=== PATIENT | male | born 1975 ===

== ENCOUNTER 2022-03-05 06:00 | Outpatient (RCR) | payer OTHER, SELFPAY | END 2022-03-24 23:59 | disposition home or self-care (01) | LOC: MPT 06:00 | PROVIDERS: Referring Provider Physician Assistant; Visit Provider Physician Assistant | DX: M54.50 Low back pain, unspecified (principal); M54.6 Pain in thoracic spine | CPT/HCPCS: 97110; 97140; 97162; G0283 ==

== ENCOUNTER 2022-03-25 06:00 | Outpatient (RCR) | payer OTHER, SELFPAY | END 2022-04-23 23:59 | disposition home or self-care (01) | LOC: MPT 06:00 | PROVIDERS: Referring Provider Physician Assistant; Visit Provider Physician Assistant | DX: M54.59 Other low back pain (principal); M54.6 Pain in thoracic spine | CPT/HCPCS: 97110; G0283 ==

== ENCOUNTER 2022-04-24 06:00 | Outpatient (RCR) | payer OTHER, SELFPAY | END 2022-05-24 23:59 | disposition home or self-care (01) | LOC: MPT 06:00 | PROVIDERS: Referring Provider Physician Assistant; Visit Provider Physician Assistant | DX: M54.59 Other low back pain (principal); M54.6 Pain in thoracic spine | CPT/HCPCS: 97110; 97140; G0283 ==

== ENCOUNTER 2022-05-25 06:00 | Outpatient (RCR) | payer OTHER, SELFPAY | END 2022-06-24 23:59 | disposition home or self-care (01) | LOC: MPT 06:00 | PROVIDERS: Referring Provider Physician Assistant; Visit Provider Physician Assistant | DX: M54.50 Low back pain, unspecified (principal) | CPT/HCPCS: 97110; G0283 ==